=== PATIENT | female | born 1935 | race Caucasian/White ===

== ENCOUNTER 2018-06-09 15:50 | Outpatient (CLI) | payer MEDICARE, BC ==
[2016-06-02 15:50] VITALS: O2SAT 91
== END 2018-06-09 15:51 | disposition home or self-care (01) | DRG 561 ==
LOC: CONVCARE 15:50
PROVIDERS: ATTEND Orthopaedic Surgery
DX: T84.092A Other mechanical complication of internal right knee prosthesis, initial encounter (principal)
CPT/HCPCS: 73562